=== PATIENT | male | born 1965 | race Two or more races ===

== ENCOUNTER 2016-11-04 15:24 | Emergency (ER) | payer OTHER ==
[~2016-11-04] VITALS: Ht 170.2 cm; Wt 68.0 kg
[2016-11-04 15:24] VITALS: BP 137/89
== END 2016-11-04 15:52 | disposition home or self-care (01) ==
LOC: ER 15:36
DX: M54.5 Low back pain (principal)
CPT/HCPCS: 99282; A4606; Z7610